=== PATIENT | female | born 1930 | race Asian ===

== ENCOUNTER 2019-02-18 11:20 | Inpatient (IN) | payer OTHER ==
[~2019-02-18] VITALS: Ht 170.2 cm; Wt 61.3 kg
[2019-02-18 11:53] LABS: BASOPHIL % 0.2 % (0-2); PLATELET COUNT 144 x10^3mcL (130-400)
[2019-02-18 12:06] LABS: CALCIUM 9.4 mg/dL (8.5-10.1); CARBON DIOXIDE 30.6 mmol/L (21-32); CHLORIDE SERUM 101 mmol/L (98-107); CREATININE SERUM 0.8 mg/dL (0.6-1.0); GLUCOSE SERUM 136 mg/dL (74-106); POTASSIUM SERUM 4.3 mmol/L (3.5-5.1); SODIUM SERUM 137 mmol/L (136-145)
[2019-02-18 12:10] LABS: ALBUMIN 3.7 g/dL (3.4-5.0); ALKALINE PHOSPHATASE 159 U/L (46-116); ALT/SGPT 35 U/L (14-59); AST/SGOT 36 U/L (15-37); BILIRUBIN TOTAL 0.88 mg/dL (0.20-1.00); TOTAL PROTEIN, SERUM 7.8 g/dL (6.4-8.2)
[2019-02-18 14:57] LABS: T3 TOTAL 0.86 ng/mL
[2019-02-18 15:14] LABS: FREE THYROXINE INDEX 2.9 ug/dL (1.4-4.5); T4(THYROXINE) 8.7 ug/dL (4.7-13.3)
[2019-02-18 15:27] LABS: CHOLESTEROL/HDL RATIO 2.9; MAGNESIUM 2.2 mg/dL (1.8-2.4); PHOSPHOROUS 2.3 mg/dL (2.5-4.9)
[2019-02-18 15:36] VITALS: BP 188/76
[2019-02-18 15:39] VITALS: Ht 170.2 cm; Wt 61.3 kg
[2019-02-18 21:07] VITALS: BP 129/53
[2019-02-19 03:42] LABS: microscopic required? YES; urine erythrocyte 1+ (NEGATIVE)
[2019-02-19 03:57] LABS: AMPHETAMINE QUAL UR NONE DETECTED (See below)
[2019-02-19 06:01] VITALS: BP 136/49
[2019-02-19 06:42] LABS: CALCIUM 8.7 mg/dL (8.5-10.1); CARBON DIOXIDE 28.7 mmol/L (21-32); CHLORIDE SERUM 100 mmol/L (98-107); CREATININE SERUM 0.9 mg/dL (0.6-1.0); GLUCOSE SERUM 91 mg/dL (74-106); MAGNESIUM 2.3 mg/dL (1.8-2.4); PHOSPHOROUS 3.2 mg/dL (2.5-4.9); POTASSIUM SERUM 3.9 mmol/L (3.5-5.1); SODIUM SERUM 133 mmol/L (136-145)
[2019-02-19 06:43] LABS: BASOPHIL % 0.3 % (0-2); PLATELET COUNT 130 x10^3mcL (130-400); RED CELL DISTRIBUTION WIDTH 12.8 % (11.5-14.5)
[2019-02-19 09:33] VITALS: BP 135/50
[2019-02-19 17:27] VITALS: BP 128/54
[2019-02-19 21:00] VITALS: BP 122/52
[2019-02-20 05:14] VITALS: BP 142/64
[2019-02-20 06:09] LABS: BASOPHIL % 0.4 % (0-2); PLATELET COUNT 132 x10^3mcL (130-400); RED CELL DISTRIBUTION WIDTH 13.3 % (11.5-14.5)
[2019-02-20 06:22] LABS: CALCIUM 8.6 mg/dL (8.5-10.1); CARBON DIOXIDE 28.4 mmol/L (21-32); CHLORIDE SERUM 104 mmol/L (98-107); CREATININE SERUM 0.7 mg/dL (0.6-1.0); GLUCOSE SERUM 99 mg/dL (74-106); MAGNESIUM 2.1 mg/dL (1.8-2.4); PHOSPHOROUS 3.1 mg/dL (2.5-4.9); POTASSIUM SERUM 3.9 mmol/L (3.5-5.1); SODIUM SERUM 138 mmol/L (136-145)
[2019-02-20 08:46] VITALS: BP 116/41
[2019-02-20] MEDS ORDERED: MECLIZINE HYD12.5 MG PO (11:09)
[2019-02-20 11:51] VITALS: BP 116/41
[2019-02-20 12:58] VITALS: BP 126/51
[2019-02-20] MEDS ORDERED: IBUPROFEN400 MG PO (13:11)
[2019-02-20 17:11] VITALS: BP 138/54
== END 2019-02-20 20:52 | DRG 48 ==
LOC: ED 11:20 → DU 14:17
PROVIDERS: Emergency Medicine; ADMIT Family Medicine
DX: G90.8 Other disorders of autonomic nervous system (principal); E83.39 Other disorders of phosphorus metabolism; I10 Essential (primary) hypertension; I16.0 Hypertensive urgency; M16.11 Unilateral primary osteoarthritis, right hip; E87.1 Hypo-osmolality and hyponatremia; S79.911A Unspecified injury of right hip, initial encounter; W18.39XA Other fall on same level, initial encounter; Y93.89 Activity, other specified; Y92.89 Other specified places as the place of occurrence of the external cause; Y99.8 Other external cause status; Z79.899 Other long term (current) drug therapy; Z23 Encounter for immunization
CPT/HCPCS: 83880; 84439; 90658; 97112-GP; 97116-GP; 97530-GP; G0378; J1885; J2270; J8597; Q0092